=== PATIENT | male | born 1980 | race Caucasian/White ===

== ENCOUNTER → 2019-01-27 | Outpatient (CLI) | payer BC | END | disposition home or self-care (01) | LOC: CARD 08:27 | PROVIDERS: ATTEND Nurse Practitioner Family | DX: G47.26 Circadian rhythm sleep disorder, shift work type (principal); R40.4 Transient alteration of awareness; R51 Headache; R56.9 Unspecified convulsions | CPT/HCPCS: 95819 ==

== ENCOUNTER 2019-04-20 10:00 | Outpatient (CLI) | payer BC | END 2019-04-20 23:59 | disposition home or self-care (01) | LOC: CFH 10:00 | PROVIDERS: ATTEND Psychiatry & Neurology Neurology | DX: G40.219 Localization-related (focal) (partial) symptomatic epilepsy and epileptic syndromes with complex partial seizures, intractable, without status epilepticus (principal) | CPT/HCPCS: 70553; A9585 ==

== ENCOUNTER 2019-07-01 14:04 | Inpatient (IN) | payer BC ==
[~2019-07-01] VITALS: Ht 185.4 cm; Wt 98.7 kg
[~2019-07-01 14:04] MED LIST: DIVA-59 PO; ESCI10TA10 PO; LAMO200T49 PO
[2019-07-01] MEDS ORDERED: LORazepam 2 MG/ML, 1ML ONE (14:09)
--- NOTE | 2019-07-01 14:20 | NUR ---
[facility]ED TO [facility] ON 3RD FLO[facility] FOR CODE 250. PT HAD RECEIVED AN INFUSION OF 1 GM SOLUMEDROL FOR AUTOIMMUNE ENCELOPATHY. PT BECAME ANXIOUS, CONFUSED. V/S BY INFUSION STAFF 107/78, P 91. UNABLE TO OBTAIN A PULSE OX. PT BEGAN HAVING A SEIZURE. LASTING APPROX 30 SEC. AT 1355 CALL TO ER, DR DAVE, OBTAINED V/O FOR ATIVAN 1MG IV. GIVEN AT 1358. PT TRANSPORTE TO ER. PT YELLING, COMBATIVE, "HELP ME." NOT ANSWERING QUESTIONS. IV IN LFA PULLED OUT. REQUESTED ER MD. DR SHARPE AT BEDSIDE AT 1405. IV RE-ESTABLISHED. 18G IN LFA. PT GIVEN 2MG ATIVAN PER V/O. [address] PER MONITOR, AUTO BP AND PULSE OX IN PLACE.
--- NOTE | 2019-07-01 14:51 | NUR ---
Report received assumed patient care, father of patient at bedside. Patient is calm, resting with eyes closed. attached to monitors. RR even, snoring noted, pt on 3 L NC.
--- NOTE | 2019-07-01 14:57 | NUR ---
Minerva Enamorado- of patient was on the phone [phone].
[2019-07-01] MEDS ORDERED: LORazepam 2 MG/ML, 1ML IVPush ONE ×2 (15:00)
[2019-07-01 15:02] LABS: BASOPHILS # (AUTO) 0.02 x10^3/uL (0-0.1); BASOPHILS % (AUTO) 0 % (0-1); EOSINOPHILS # (AUTO) 0.14 x10^3/uL (0-0.4); EOSINOPHILS % (AUTO) 2 % (1-7); LYMPHOCYTES # (AUTO) 2.39 x10^3/uL (1-3.4); LYMPHOCYTES % (AUTO) 26 % (22-44); MD NO; MEAN CORPUSCULAR HEMOGLOBIN 33.4 pg (27.5-34.5); MEAN CORPUSCULAR HGB CONC 34.1 g/dL (33.2-36.2); MEAN CORPUSCULAR VOLUME 98.2 fL (81-97); MEAN PLATELET VOLUME 8.4 fL (7.4-10.4); MONOCYTES % (AUTO) 2 % (2-9); NEUTROPHILS # (AUTO) 6.41 x10^3/uL (1.8-6.8); NEUTROPHILS % (AUTO) 70 % (42-75); PLATELET COUNT 339 x10^3/uL (130-400); RED BLOOD COUNT 4.71 x10^6/uL (4.38-5.82); RED CELL DISTRIBUTION WIDTH 12.1 % (9.4-14.8)
[2019-07-01 15:10] LABS: ALBUMIN 4.6 g/dL (3.4-5.0); ANION GAP 23 mmol/L (5-15); CALCIUM 9.4 mg/dL (8.5-10.1); CHLORIDE 98 mmol/L (98-107); CREATININE 1.61 mg/dL (0.7-1.3)
[2019-07-01] MEDS ORDERED: LAMO50TA3 PO (15:16)
--- NOTE | 2019-07-01 15:35 | NUR ---
Patient resting with eyes closed. RR even and unlabored. End tidal CO2 monitoring on patient 2L O2. Rails remain padded, attached to monitors. FOP at bedside. of patient Minevra on the phone with Kajal CASANOVA.
[2019-07-01] MEDS ORDERED: ESCI20TA PO (15:45)
--- NOTE | 2019-07-01 15:46 | NUR ---
RECEIVED CALL FROM PTS KIANA, PT DOES NOT TAKE LAMICTAL. SHE THINKS HE TAKES DEPAKOTE. HE DOES TAKE LEXAPRO 20MG QDAY. SHE WILL CALL [facility] FOR MEDICATION AND DOSAGE AND CALL BACK.
[2019-07-01] MEDS ORDERED: DIVA250T4 PO (16:11)
--- NOTE | 2019-07-01 16:11 | NUR ---
RECEIVED CALL FROM PTS KIANA [phone], [place] AND WOULD LIKE TO BE KEPT INFORMED OF PT STATUS. SHE ATTEMPTED TO CALL [facility], THEY WOULD NOT GIVE OUT MEDICATION INFORMATION TO HER. RN CALLED [facility], RECEIVED MEDICATION LIST. PT SUPPOSE TO BE TAKING DEPAKOTE 250 MG BID. PER KIANA HAS ONLY BEEN TAKING IT Q DAY R/T "WAY IT MADE HIM FEEL" MED REC UPDATED. DR SHARPE NOTIFIED.
[2019-07-01] MEDS ORDERED: VALPROATE SODIUM 500 MG in SODIUM CHLORIDE 0.9% 100 ML IV ONE (16:30)
[2019-07-01] MEDS ORDERED: SODIUM CHLORIDE FLUSH 10ML SYR IVF PRN ×2 (17:00→17:30)
[2019-07-01] MEDS ORDERED: LORazepam 2 MG/ML, 1ML IVPush PRN (17:30)
[2019-07-01] MEDS ORDERED: VALPROATE SODIUM 250 MG in DEXTROSE 5% 100 ML IV ONE (17:30)
[2019-07-01] MEDS ORDERED: ACETAMINOPHEN 325 MG TABLET PO PRN (17:30)
[2019-07-01] MEDS ORDERED: ONDANSETRON 2MG/ML, 2ML IVPush PRN (17:30)
--- NOTE | 2019-07-01 17:36 | NUR ---
PATIENT RESTING IN BED, ATTACHED TO MONITORS, FAMILY AT BEDSIDE. PATIENT IV DISLODGED AND WAS REMOVED, CATH TIP INTACT. PENDING ADMISSION
--- NOTE | 2019-07-01 17:45 | NUR ---
Report given to Andria CASANOVA
[2019-07-01 17:48] LABS: HEMOGLOBIN A1C 5.3 % (4.2-6.3)
[2019-07-01 18:24] LABS: ALBUMIN 4.3 g/dL (3.4-5.0); BILIRUBIN, DIRECT 0.1 mg/dL (0.1-0.2)
[2019-07-01 18:26] LABS: ALANINE AMINOTRANSFERASE 30 U/L (12-78); ALKALINE PHOSPHATASE 56 U/L (45-117); BILIRUBIN,INDIRECT 0.5 mg/dL (0.0-2.0); BILIRUBIN,TOTAL 0.6 mg/dL (0.2-1.0); TOTAL PROTEIN 8.1 g/dL (6.4-8.2)
[2019-07-01] MEDS: HEPARIN 5,000 UNITS/ML, 1ML SQ SCH (18:30)
[2019-07-01] MEDS: SODIUM CHLORIDE 0.9% 1,000 ML IV SCH (18:31)
[2019-07-01 18:37] LABS: ACETONE, SERUM Negative (Negative)
[2019-07-01 18:44] LABS: HCT (SEDRATE) 46.2 % (39.2-51.8)
[2019-07-01 19:00] VITALS: BP 132/89
[2019-07-01] MEDS ORDERED: SODIUM CHLORIDE 0.9% 1,000ML IVBOLUS ONE (19:00)
[2019-07-01] MEDS: NICOTINE 7 MG/24 HR PATCH.TD24 TD SCH (19:49)
[2019-07-01] MEDS ORDERED: VALPROATE SODIUM IV ONE (20:00)
[2019-07-01] MEDS ORDERED: SODIUM CHLORIDE 0.9% IV ONE (20:00)
[2019-07-02] MEDS: HEPARIN 5,000 UNITS/ML, 1ML SQ SCH ×4 (00:52→17:35)
[2019-07-02 01:57] VITALS: BP 122/78
[2019-07-02 03:16] LABS: MICROSCOPIC AUTO
[2019-07-02 03:18] LABS: CULTURE INDICATED? NO
[2019-07-02 03:26] LABS: AMPHETAMINE SCREEN, URINE Negative (Negative); BARBITURATE SCREEN, URINE Negative (Negative); BENZODIAZEPINE SCREEN, URINE Negative (Negative); CANNABINOID SCREEN, URINE Negative (Negative); CHLORIDE,URINE RANDOM 43 mmol/L; COCAINE SCREEN, URINE Negative (Negative); METHADONE SCREEN, URINE Negative (Negative); OPIATE SCREEN, URINE Negative (Negative); POTASSIUM,URINE RANDOM 20 mmol/L; SODIUM,URINE RANDOM 38 mmol/L
[2019-07-02 04:25] LABS: ANION GAP 12 mmol/L (5-15); CALCIUM 8.8 mg/dL (8.5-10.1); CHLORIDE 105 mmol/L (98-107); CREATININE 2.15 mg/dL (0.7-1.3)
[2019-07-02] MEDS: SODIUM CHLORIDE 0.9% 1,000 ML IV SCH ×2 (06:05→23:45)
[2019-07-02] MEDS: ESCITALOPRAM 10MG TABLET PO SCH (08:37)
[2019-07-02] MEDS: DIVALPROEX 250 MG TABLET.DR PO SCH ×2 (08:37→19:48)
[2019-07-02 08:52] VITALS: BP 119/63
[2019-07-02 10:18] VITALS: BP 132/72
[2019-07-02 15:41] VITALS: BP 117/74
[2019-07-02 19:42] VITALS: BP 114/69
[2019-07-02] MEDS: NICOTINE 7 MG/24 HR PATCH.TD24 TD SCH (19:48)
[2019-07-03 01:24] VITALS: BP 112/63
[2019-07-03] MEDS: HEPARIN 5,000 UNITS/ML, 1ML SQ SCH ×2 (01:42→09:14)
[2019-07-03 06:06] LABS: ANION GAP 10 mmol/L (5-15); CALCIUM 8.6 mg/dL (8.5-10.1); CHLORIDE 108 mmol/L (98-107)
[2019-07-03 06:09] LABS: CREATININE 1.64 mg/dL (0.7-1.3)
[2019-07-03] MEDS: ESCITALOPRAM 10MG TABLET PO SCH (09:14)
[2019-07-03] MEDS: DIVALPROEX 250 MG TABLET.DR PO SCH (09:14)
[2019-07-03 09:35] VITALS: BP 113/69
[2019-07-03] MEDS ORDERED: DIVA-59 PO (11:37)
== END 2019-07-03 13:43 | disposition home or self-care (01) | DRG 98 ==
LOC: ED 16:55 → EDIP 16:56 → ED 17:17 → 4WST 18:15
PROVIDERS: ADMIT Internal Medicine; ATTEND Internal Medicine
DX: G04.81 Other encephalitis and encephalomyelitis (principal); E87.1 Hypo-osmolality and hyponatremia; E87.2 Acidosis; N17.9 Acute kidney failure, unspecified; B00.9 Herpesviral infection, unspecified; F17.210 Nicotine dependence, cigarettes, uncomplicated; F41.9 Anxiety disorder, unspecified; R00.0 Tachycardia, unspecified; G40.909 Epilepsy, unspecified, not intractable, without status epilepticus; Z86.61 Personal history of infections of the central nervous system
CPT/HCPCS: 36415; 36600; 76770; 80048; 80076; 80164; 80307; 81001; 82010; 82040; 82436; 82550; 82570; 82803; 82962; 83036; 83605; 83735; 84100; 84133; 84300; 84443; 85025; 85651; 93005; 99285; G0378; J1644; J2930; J2060; J7030

== ENCOUNTER 2020-02-07 09:43 | Outpatient (CLI) | payer BC ==
[~2020-02-07 09:43] MED LIST changes: +DIVA250T4 PO; +ESCI20TA PO; +LAMO50TA3 PO
== END 2020-02-07 23:59 | disposition home or self-care (01) ==
LOC: PETCFH 09:43
PROVIDERS: ATTEND Psychiatry & Neurology Neurology
DX: G40.219 Localization-related (focal) (partial) symptomatic epilepsy and epileptic syndromes with complex partial seizures, intractable, without status epilepticus (principal); G04.90 Encephalitis and encephalomyelitis, unspecified
CPT/HCPCS: 78816; A9552